=== PATIENT | male | born 1995 | race Caucasian/White ===

== ENCOUNTER 2022-03-27 22:29 | Emergency (ER) | payer MEDICAID ==
[2022-03-27 23:10] LABS: Absolute Neutrophil Ct (ANC) 4.32 x10^3/uL (1.4-6.9); Basophil (Absolute #) 0.04 x10^3/uL (0-0.4); Eosinophil % 7.2 % (0.00-5.0); Eosinophil (Absolute #) 0.61 x10^3/uL (0-0.5); Hematocrit 43.9 % (42-50); Hemoglobin 15.1 g/dL (12.5-18.0); Lymphocytes % 32.9 % (24.0-44.0); Mean Corpuscular Hemoglobin 30.3 pg (26-32); Mean Corpuscular Hgb Concent. 34.4 g/dL (32-36); Mean Platelet Volume 9.2 fL (7.5-11.0); Monocytes % 8.2 % (0.0-12.0); Neutrophil % 50.8 % (36.0-66.0); Platelet Count 256 x10^3/uL (150-450); Red Blood Count 4.99 x10^6/uL (4.1-5.6); Red Cell Distribution Width 11.9 % (11.5-14.0); White Blood Count 8.5 x10^3/uL (4.0-10.5)
--- NOTE | 2022-03-27 23:12 | ERPHSYRPT ---
- History of Present Illness Time Seen by Provider: 03/27/22 22:51 Source: patient Exam Limitations: no limitations Patient Subjective Stated Complaint: Patient is here for a well-check/work physical. States he was sent home from work twice this week due to elevated B/P and his job states he must have a physical form completed by a doctor to keep his job and return to work. Patient brought this form with him to the ED. Patient states he was sent home 2 days ago from work and has no current complaints or symptoms right now. States elevated B/P at work happens when he gets "headaches in my left front of my forehead that feels like a lot of pressure in there." Triage Nursing Assessment: Patient ambulated back to ED without difficulties. He is alert and oriented and anwering questions appropriately. No SOB. Skin tone normal. VINICIO MACKEY. Physician History: 26-year-old presented in the ER for evaluation of elevated blood pressure which has been found twice at work this week. Blood pressure was 160/100 earlier toda y and is sent home. Patient reports he works in an environment which is hot and starts feeling mild headache without chest pain palpitations shortness of breath. Denies any dizziness or lightheadedness. They checked his blood pressure it was elevated and sent in here. No history of previous elevated blood pressure. Denies having this kind of symptoms at home. Has not checked his blood pressure at home. Denies caffeinated/energy drinks are any supplement use. No drug alcohol or tobacco use. Does have family history of hypertension. Currently patient is asymptomatic and blood pressure is 144/83. Timing/Duration: day(s), intermittent, improved Severity: moderate Associated Symptoms: headaches, No nausea, No vomiting, No abdominal pain, No shortness of breath, No heartburn, No diaphoresis, No cough, No chest pain, No loss of appetite, No malaise, No syncope, No seizure, No weakness Allergies/Adverse Reactions: No Known Drug Allergies Allergy (Verified 03/27/22 22:34) Home Medications: No Reportable Medications [No Reported Medications] 03/27/22 [History] Hx Tetanus, Diphtheria Vaccination/Date Given: Yes Hx Influenza Vaccination/Date Given: Yes Hx Pneumococcal Vaccination/Date Given: No Immunizations Up to Date: Yes Travel Risk - International Travel Have you traveled outside of the country in past 3 weeks: No - Coronavirus Screening Are you exhibiting any of the following symptoms?: No Close contact with a COVID-19 positive Pt in past 14-21 Days: No - Vaccine Status Have you recieved a Covid-19 vaccination: Yes 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: [id number] - Vaccination Dates Date of 2cond Vaccination (if applicable): 2020 - Review of Systems Constitutional: No Symptoms Eyes: No Symptoms Ears, Nose, & Throat: No Symptoms Respiratory: No Symptoms Cardiac: No Symptoms Abdominal/Gastrointestinal: No Symptoms Genitourinary Symptoms: No Symptoms Musculoskeletal: No Symptoms Skin: No Symptoms Neurological: No Dizziness, No Focal Weakness, No Gait Changes Psychological: No Symptoms Endocrine: No Symptoms Hematologic/Lymphatic: No Symptoms Immunological/Allergic: No Symptoms - Past Medical History Pertinent Past Medical History: Yes Neurological History: Migraines ENT History: No Pertinent History Cardiac History: No Pertinent History Respiratory History: No Pertinent History Endocrine Medical History: No Pertinent History Musculoskeletal History: Fractures GI Medical History: No Pertinent History History: No Pertinent History Psycho-Social History: No Pertinent History Male Reproductive Disorders: No Pertinent History - Past Surgical History Past Surgical History: Yes Neuro Surgical History: No Pertinent History Cardiac: No Pertinent History Respiratory: No Pertinent History Gastrointestinal: No Pertinent History Genitourinary: No Pertinent History Musculoskeletal: No Pertinent History Male Surgical History: No Pertinent History Other Surgical History: 2 titanum plates in arm from a broken bone - Social History Smoking Status: Current every day smoker How long have you smoked: Teenager Exposure to second hand smoke: No Drug Use: none Patient Lives Alone: No - Nursing Vital Signs Nursing Vital Signs: Initial Vital Signs Temperature 97 F 03/27/22 22:36 Pulse Rate 65 03/27/22 22:36 Respiratory Rate 18 03/27/22 22:36 Blood Pressure 144/83 03/27/22 22:36 O2 Sat by Pulse Oximetry 99 03/27/22 22:36 Pain Scale Pain Intensity 0 - Physical Exam General Appearance: no apparent distress, alert Eye Exam: PERRL/EOMI, eyes nml inspection Ears, Nose, Throat Exam: normal ENT inspection, TMs normal, pharynx normal Neck Exam: normal inspection, non-tender, supple, full range of motion Respiratory Exam: normal breath sounds, lungs clear Cardiovascular Exam: regular rate/rhythm, normal heart sounds Gastrointestinal/Abdomen Exam: soft, normal bowel sounds, No tenderness Back Exam: normal inspection, normal range of motion Extremity Exam: normal inspection, normal range of motion Neurologic Exam: alert, oriented x 3, cooperative, 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, normal mood/affect, nml cerebellar function, nml station & gait, sensation nml, No motor deficits Skin Exam: normal color SpO2 Interpretation: normal SpO2: 99 O2 Delivery: Room Air - Course EKG Interpreted by Me: RATE (66), Sinus Rhythm, NORMAL AXIS, NORMAL INTERVALS, N ORMAL QRS Ordered Tests: Active Orders 24 hr Category Date Time Status EKG-ER Only STAT Care 03/27/22 22:53 Active CHEST 1 VIEW (PORTABLE) Stat Exams 03/27/22 22:53 Taken CBC W DIFF Stat Lab 03/27/22 23:08 Completed CMP Stat Lab 03/27/22 23:08 Completed TROPONIN Q3H Lab 03/27/22 23:08 Completed TROPONIN Q3H Lab 03/28/22 02:00 Ordered TROPONIN Q3H Lab 03/28/22 05:00 Ordered TROPONIN Q3H Lab 03/28/22 08:00 Ordered TROPONIN Q3H Lab 03/28/22 11:00 Ordered UA W/RFX CULTURE Stat Lab 03/27/22 23:11 Completed Lab/Rad Data: Laboratory Result Diagrams 03/27/22 23:08 03/27/22 23:08 Laboratory Results 03/27/22 03/27/22 03/27/22 Range/Units 23:11 23:08 23:08 WBC (4.0-10.5) x10^3/uL RBC (4.1-5.6) x10^6/uL Hgb (12.5-18.0) g/dL Hct (42-50) % MCV (78-100) fL MCH (26-32) pg MCHC (32-36) g/dL RDW (11.5-14.0) % Plt Count (150-450) x10^3/uL MPV (7.5-11.0) fL Gran % (36.0-66.0) % Immature Gran % (Auto) (0.00-0.4) % Nucleat RBC Rel Count (0.00-0.1) % Eos # (Auto) (0-0.5) x10^3/uL Immature Gran # (Auto) (0.00-0.03) x10^3u/L Absolute Lymphs (auto) (1.0-4.6) x10^3/uL Absolute Monos (auto) (0.0-1.3) x10^3/uL Absolute Nucleated RBC (0.00-0.01) x10^3u/L Lymphocytes % (24.0-44.0) % Monocytes % (0.0-12.0) % Eosinophils % (0.00-5.0) % Basophils % (0.0-0.4) % Absolute Granulocytes (1.4-6.9) x10^3/uL Basophils # (0-0.4) x10^3/uL Sodium 139 (137-145) mmol/L Potassium 3.7 (3.5-5.1) mmol/L Chloride 103 (98-107) mmol/L Carbon Dioxide 28 (22-30) mmol/L Anion Gap 12.2 (5-15) MEQ/L BUN 11 (9-20) mg/dL Creatinine 0.92 (0.66-1.25) mg/dL Estimated GFR > 60.0 ML/MIN Glucose 100 (74-106) mg/dL Calcium 9.3 (8.4-10.2) mg/dL Total Bilirubin 1.20 (0.2-1.3) mg/dL AST 25 (17-59) U/L ALT 21 (0-50) U/L Alkaline Phosphatase 63 (38-126) U/L Troponin I < 0.012 (0.000-0.034) ng/mL Serum Total Protein 7.2 (6.3-8.2) g/dL Albumin 4.2 (3.5-5.0) g/dL Urinalys Dipstick Clnc MAIN LAB Urine Color YELLOW (YELLOW) Urine Appearance CLEAR (CLEAR) Urine pH 7.0 (5-6) Ur Specific [place] 1.020 (1.005-1.025) POC Urine Protein Conf NEGATIVE (Negative) Urine Ketones NEGATIVE (NEGATIVE) Urine Nitrite NEGATIVE (NEGATIVE) Urine Bilirubin NEGATIVE (NEGATIVE) Urine Urobilinogen 0.2 (0-1) mg/dL Urine Leukocytes NEGATIVE (NEGATIVE) Urine WBC (Auto) 0-2 (0-5) /HPF Urine RBC (Auto) NONE (0-2) /HPF U Epithel Cells (Auto) NONE (FEW) /HPF Urine Bacteria (Auto) NONE (NEGATIVE) /HPF Urine RBC NEGATIVE (0-5) Terrell/ul Amorphous Crystals FEW (NEGATIVE) /HPF Ur Culture Indicated? NO Urine Glucose NEGATIVE (NEGATIVE) mg/dL 03/27/22 Range/Units 23:08 WBC 8.5 (4.0-10.5) x10^3/uL RBC 4.99 (4.1-5.6) x10^6/uL Hgb 15.1 (12.5-18.0) g/dL Hct 43.9 (42-50) % MCV 88.0 (78-100) fL MCH 30.3 (26-32) pg MCHC 34.4 (32-36) g/dL RDW 11.9 (11.5-14.0) % Plt Count 256 (150-450) x10^3/uL MPV 9.2 (7.5-11.0) fL Gran % 50.8 (36.0-66.0) % Immature Gran % (Auto) 0.4 (0.00-0.4) % Nucleat RBC Rel Count 0.0 (0.00-0.1) % Eos # (Auto) 0.61 H (0-0.5) x10^3/uL Immature Gran # (Auto) 0.03 (0.00-0.03) x10^3u/L Absolute Lymphs (auto) 2.80 (1.0-4.6) x10^3/uL Absolute Monos (auto) 0.70 (0.0-1.3) x10^3/uL Absolute Nucleated RBC 0.00 (0.00-0.01) x10^3u/L Lymphocytes % 32.9 (24.0-44.0) % Monocytes % 8.2 (0.0-12.0) % Eosinophils % 7.2 H (0.00-5.0) % Basophils % 0.5 (0.0-0.4) % Absolute Granulocytes 4.32 (1.4-6.9) x10^3/uL Basophils # 0.04 (0-0.4) x10^3/uL Sodium (137-145) mmol/L Potassium (3.5-5.1) mmol/L Chloride (98-107) mmol/L Carbon Dioxide (22-30) mmol/L Anion Gap (5-15) MEQ/L BUN (9-20) mg/dL Creatinine (0.66-1.25) mg/dL Estimated GFR ML/MIN Glucose (74-106) mg/dL Calcium (8.4-10.2) mg/dL Total Bilirubin (0.2-1.3) mg/dL AST (17-59) U/L ALT (0-50) U/L Alkaline Phosphatase (38-126) U/L Troponin I (0.000-0.034) ng/mL Serum Total Protein (6.3-8.2) g/dL Albumin (3.5-5.0) g/dL Urinalys Dipstick Clnc Urine Color (YELLOW) Urine Appearance (CLEAR) Urine pH (5-6) Ur Specific [place] (1.005-1.025) POC Urine Protein Conf (Negative) Urine Ketones (NEGATIVE) Urine Nitrite (NEGATIVE) Urine Bilirubin (NEGATIVE) Urine Urobilinogen (0-1) mg/dL Urine Leukocytes (NEGATIVE) Urine WBC (Auto) (0-5) /HPF Urine RBC (Auto) (0-2) /HPF U Epithel Cells (Auto) (FEW) /HPF Urine Bacteria (Auto) (NEGATIVE) /HPF Urine RBC (0-5) Terrell/ul Amorphous Crystals (NEGATIVE) /HPF Ur Culture Indicated? Urine Glucose (NEGATIVE) mg/dL - Progress Progress: unchanged, re-examined Progress Note: 03/27/22 23:51 26-year-old is evaluated for elevated blood pressure earlier at work. Patient pressure on presentation was in 140s and then improved to 130s without any tachypnea or tachycardia. EKG showed sinus rhythm without any ST elevation. Chest x-ray reviewed by me no acute findings, official report is pending. Grossly unremarkable chemistries, CBC and troponin. His elevated blood pressure at work could be related to stress/heat, I would not start him on any antihypertensive now, recommended 2 weeks monitoring of blood pressure/keeping a log and outpatient follow-up with primary care. He does not have any signs of endorgan damage, do not think needs any other work-up and is stable for discharge with outpatient primary care follow-up to see if he needs any work-up for secondary hypertension. Discussed signs symptoms of worsening needing return to ER which he seems understanding. Counseled pt/family regarding: lab results, diagnosis, need for follow-up, rad results - Departure Departure Disposition: Home Clinical Impression: Elevated blood pressure, situational Condition: Stable Critical Care Time: No Referrals: DOCTOR,NO FAMILY [Primary Care Provider] - Follow up/PCP as directed OLIVER BRAXTON DO [ACTIVE STAFF] - Follow up/PCP as directed (Call tomorrow for appointment for reevaluation) Instructions: High Blood Pressure (DC), Controlling Your Blood Pressure Through Lifestyle Additional Instructions: Monitor your blood pressure regularly, keep a log and follow-up with primary care for reevaluation. Take low-salt diet, regular exercise, weight loss. Return to ER for persistent elevated blood pressure more than 150 systolic/90 diastolic, chest pain/palpitations/headache/dizziness/blurry vision/abdominal pain etc.
[2022-03-27 23:20] LABS: Appearance CLEAR (CLEAR); Bilirubin NEGATIVE (NEGATIVE); Glucose NEGATIVE (NEGATIVE); Ketones NEGATIVE (NEGATIVE); RBC NEGATIVE Ery/ul (0-5)
[2022-03-27 23:21] LABS: Dipstick done @ ? MAIN LAB; Nitrite NEGATIVE (NEGATIVE); Protein,Urine Dip NEGATIVE (Negative); Urobilinogen 0.2 mg/dL (0-1)
[2022-03-27 23:23] LABS: Amourphous Crystal FEW /HPF (NEGATIVE); WBC 0-2 /HPF (0-5)
[2022-03-27 23:23] LABS: ALBUMIN 4.2 g/dL (3.5-5.0); ALKALINE PHOSPHATASE 63 U/L (38-126); ANION GAP 12.2 MEQ/L (5-15); BLOOD UREA NITROGEN 11 mg/dL (9-20); CHLORIDE 103 mmol/L (98-107); Calcium 9.3 mg/dL (8.4-10.2); Carbon Dioxide 28 mmol/L (22-30); Creatinine 1 0.92 mg/dL (0.66-1.25); EST GLOMERULAR FILTRATION RATE > 60.0 ML/MIN; Glucose 100 mg/dL (74-106); Potassium 3.7 mmol/L (3.5-5.1); SGOT/AST 25 U/L (17-59); SGPT/ALT 21 U/L (0-50); SODIUM 139 mmol/L (137-145); Total Protein 7.2 g/dL (6.3-8.2)
[2022-03-27 23:25] LABS: Urine Cultured Indicated? NO
[2022-03-27 23:35] VITALS: BP 136/86; PULSE 68
[2022-03-27 23:55] VITALS: O2SAT 99
--- NOTE | 2022-03-28 08:43 | XRAY ---
Indication: Hypertension. Comparison: None Portable apical lordotic chest demonstrates normal heart, lungs, and bony thorax.
== END 2022-03-27 23:59 | disposition home or self-care (01) ==
LOC: ED 22:29
DX: R03.0 Elevated blood-pressure reading, without diagnosis of hypertension (principal); R51.9 Headache, unspecified; Z72.0 Tobacco use
CPT/HCPCS: 36415; 71045; 80053; 81015; 84484; 85025; 93005; 99284

== ENCOUNTER 2023-08-17 08:09 | Emergency (ER) | payer MEDICAID, OTHER ==
--- NOTE | 2023-08-17 08:13 | ERPHSYRPT ---
- History of Present Illness Time Seen by Provider: 08/17/23 08:12 Source: patient Exam Limitations: no limitations Physician History: This is a 27-year-old white male patient who jumped off of a [employer] truck yesterday and rolled his left ankle. He presents with left ankle pain. Occurred: yesterday Quality: constant, aching Severity of Pain-Max: mild (Moderate) Severity of Pain-Current: mild (To moderate) Lower Extremities Pain: ankle: left Modifying Factors: Improves With: movement Associated Symptoms: other (Can weight-bear but it hurts to do so.) Allergies/Adverse Reactions: No Known Drug Allergies Allergy (Verified 08/17/23 08:17) Home Medications: No Reportable Medications [No Reported Medications] 03/27/22 [History] Hx Tetanus, Diphtheria Vaccination/Date Given: Yes Hx Influenza Vaccination/Date Given: Yes Hx Pneumococcal Vaccination/Date Given: No Travel Risk - International Travel Have you traveled outside of the country in past 3 weeks: No - Coronavirus Screening Are you exhibiting any of the following symptoms?: No Close contact with a COVID-19 positive Pt in past 14-21 Days: No - Vaccine Status Have you recieved a Covid-19 vaccination: Yes [employer]: [employer] - Vaccination Dates Date of 2cond Vaccination (if applicable): 2020 - Review of Systems Constitutional: No Symptoms Eyes: No Symptoms Ears, Nose, & Throat: No Symptoms Respiratory: No Symptoms Cardiac: No Symptoms Abdominal/Gastrointestinal: No Symptoms Genitourinary Symptoms: No Symptoms Musculoskeletal: Injury (Left ankle) Skin: No Symptoms Neurological: No Symptoms Psychological: No Symptoms Endocrine: No Symptoms Hematologic/Lymphatic: No Symptoms Immunological/Allergic: No Symptoms All Other Systems: Reviewed and Negative - Past Medical History Pertinent Past Medical History: Yes Neurological History: Migraines ENT History: No Pertinent History Cardiac History: No Pertinent History Respiratory History: No Pertinent History Endocrine Medical History: No Pertinent History Musculoskeletal History: Fractures GI Medical History: No Pertinent History History: No Pertinent History Psycho-Social History: No Pertinent History Male Reproductive Disorders: No Pertinent History - Past Surgical History Past Surgical History: Yes Neuro Surgical History: No Pertinent History Cardiac: No Pertinent History Respiratory: No Pertinent History Gastrointestinal: No Pertinent History Genitourinary: No Pertinent History Musculoskeletal: No Pertinent History Male Surgical History: No Pertinent History Other Surgical History: 2 titanum plates in arm from a broken bone - Social History Smoking Status: Current every day smoker How long have you smoked: Teenager Exposure to second hand smoke: No Drug Use: none Patient Lives Alone: No - Nursing Vital Signs Nursing Vital Signs: Initial Vital Signs Temperature 97.4 F 08/17/23 08:10 Pulse Rate 61 08/17/23 08:10 Respiratory Rate 17 08/17/23 08:10 Blood Pressure 128/79 08/17/23 08:10 O2 Sat by Pulse Oximetry 98 08/17/23 08:10 Pain Scale Pain Intensity 4 - Physical Exam General Appearance: no apparent distress, alert, anxiety Eyes, Ears, Nose, Throat Exam: normal ENT inspection, moist mucous membranes Neck Exam: normal inspection, non-tender, supple, full range of motion Cardiovascular/Respiratory Exam: chest non-tender, no respiratory distress Gastrointestinal/Abdominal Exam: non-tender Back Exam: normal inspection, normal range of motion, No CVA tenderness, No vertebral tenderness Hips Exam: bilateral: non-tender, normal inspection, normal range of motion, no evidence of injury Legs Exam: bilateral leg: non-tender, normal inspection, normal range of motion, no evidence of injury Knees Exam: bilateral knee: non-tender, normal inspection, normal range of motion, no evidence of injury Ankle Exam: right ankle: non-tender, left ankle: soft tissue tenderness, bilateral ankle: normal inspection, normal range of motion, no evidence of injury Foot Exam: bilateral foot: non-tender, normal inspection, normal range of motion, no evidence of injury Neuro/Tendon Exam: normal sensation, normal motor functions, normal tendon functions, responds to pain, no evidence tendon injury Mental Status Exam: alert, oriented x 3, cooperative Skin Exam: normal color, warm, dry SpO2 Interpretation: normal O2 Delivery: Room Air - Course Nursing assessment & vital signs reviewed: Yes Ordered Tests: Active Orders 24 hr Category Date Time Status ANKLE (3 VIEWS) Stat Exams 08/17/23 08:15 Completed - Progress Progress: unchanged Progress Note: 08/17/23 08:31 This patient's medical issue is 1 of low complexity. Level of complexity in the work-up performed is based on review of the patient's past medical history, review the patient's medication list, review of the patient's drug allergy list, history of present illness and physical findings on examination. Patient's work-up includes x-ray of the left ankle. No laboratory studies are necessary. 08/17/23 08:48 The x-ray of the left ankle was interpreted by the radiologist. I reviewed the impression. There is no evidence of any acute fracture or dislocation. There is a calcaneal bone island Counseled pt/family regarding: diagnosis, need for follow-up, rad results Medical Desision Making - Diagnostic Testing Diagnostic test were ordered, analyzed, and reviewed by me: Yes Radiological Interpretation: Interpreted by me, Teleradiologist Report - Risk of complications Minimal Risk: Minimal risk of morbidity - Departure Departure Disposition: Home Clinical Impression: Left ankle sprain Condition: Stable Critical Care Time: No Additional Instructions: Ice pack to tender area 3 times a day for the next 48 hours. Use Tylenol and ibuprofen for pain control. Keep your left lower extremity elevated above the level of the heart when not ambulating. Weightbearing as tolerated. Follow-up at the [facility] orthopedic clinic Monday through Monday 8 AM to 10 AM for further evaluation and management if your symptoms worsen or are persistent beyond 72 hours. You do not need an appointment. It is a walk-in clinic.
[2023-08-17 08:26] VITALS: TEMP 97.4
--- NOTE | 2023-08-17 08:42 | XRAY ---
Indication: Pain following injury. Comparison: None 3 view left ankle demonstrates 4 mm calcaneal bone island. No other bony, articular, or soft tissue abnormalities.
[2023-08-17 08:52] VITALS: PULSE 76; RESP 18; O2SAT 97
[2023-08-17 09:04] VITALS: BP 139/69
== END 2023-08-17 09:03 | disposition home or self-care (01) ==
LOC: ED 08:09
DX: S93.402A Sprain of unspecified ligament of left ankle, initial encounter (principal); X50.0XXA Overexertion from strenuous movement or load, initial encounter; Z72.0 Tobacco use
CPT/HCPCS: 73610; 99283

== ENCOUNTER 2024-03-20 15:15 | Emergency (ER) | payer OTHER ==
[2024-03-20 15:30] VITALS: BP 131/71; PULSE 70; RESP 18; TEMP 97; O2SAT 98
--- NOTE | 2024-03-20 16:00 | ERPHSYRPT ---
- History of Present Illness Time Seen by Provider: 03/20/24 15:45 Source: patient Exam Limitations: no limitations Patient Subjective Stated Complaint: pt here for dizziness at times, with a headache, he is worried that hes rgiht ear is the problem Triage Nursing Assessment: pt alert, walked in,resp easy, skin w/d/p. moves all ext well. denies any drainage from right ear but states he cant hear well out of it Timing/Duration: today Severity: mild Modifying Factors: Improves With: cold therapy Associated Symptoms: denies symptoms Allergies/Adverse Reactions: No Known Drug Allergies Allergy (Verified 03/20/24 15:22) Hx Tetanus, Diphtheria Vaccination/Date Given: No Hx Influenza Vaccination/Date Given: No Hx Pneumococcal Vaccination/Date Given: No Immunizations Up to Date: Yes Travel Risk - International Travel Have you traveled outside of the country in past 3 weeks: No - Emerging Infectious Disease Are you exhibiting symptoms associated with any current EIDs: No - Review of Systems Eyes: No Symptoms Ears, Nose, & Throat: No Symptoms Respiratory: No Symptoms Cardiac: No Symptoms Abdominal/Gastrointestinal: No Symptoms Genitourinary Symptoms: No Symptoms Musculoskeletal: No Symptoms - Past Medical History Pertinent Past Medical History: No Neurological History: Migraines ENT History: No Pertinent History Cardiac History: No Pertinent History Respiratory History: No Pertinent History Endocrine Medical History: No Pertinent History Musculoskeletal History: Fractures GI Medical History: No Pertinent History History: No Pertinent History Psycho-Social History: No Pertinent History Male Reproductive Disorders: No Pertinent History - Past Surgical History Past Surgical History: Yes Neuro Surgical History: No Pertinent History Cardiac: No Pertinent History Respiratory: No Pertinent History Gastrointestinal: No Pertinent History Genitourinary: No Pertinent History Musculoskeletal: Orthopedic Surgery Male Surgical History: No Pertinent History Other Surgical History: 2 titanum plates in arm from a broken bone - Social History Smoking Status: Never smoker How long have you smoked: Teenager Exposure to second hand smoke: No Drug Use: none Patient Lives Alone: No - Social Determinants of Health Will the patient participate in the screening: Declined to provide - Nursing Vital Signs Nursing Vital Signs: Initial Vital Signs Temperature 97.0 F 03/20/24 15:29 Pulse Rate 70 03/20/24 15:29 Respiratory Rate 18 03/20/24 15:29 Blood Pressure 131/71 03/20/24 15:29 O2 Sat by Pulse Oximetry 98 03/20/24 15:29 Pain Scale Pain Intensity 1 - Physical Exam General Appearance: no apparent distress Eye Exam: PERRL/EOMI Ears, Nose, Throat Exam: TM abnormal (R), other (right TM is erythematous with poor cone of light) Neck Exam: normal inspection Respiratory Exam: normal breath sounds Cardiovascular Exam: regular rate/rhythm Gastrointestinal/Abdomen Exam: soft SpO2: 98 Ordered Tests: Active Orders 24 hr Category Date Time Status HEAD WITHOUT CONTRAST [CT] Stat Exams 03/20/24 15:58 Completed - Progress Progress Note: Head CT revealed paranasal sinus disease will be discharged home with a course of Augmentin for treatment of his sinusitis and right otitis media he was informed of the need to follow-up with his primary care provider and return to the ER if he were to get worse 03/20/24 17:14 Medical Desision Making - Discussion of managment Agreed on:: need for follow-up - Departure Clinical Impression: Otitis media, Dizziness Condition: Stable Critical Care Time: No Referrals: DOCTOR,NO FAMILY [Primary Care Provider] - Follow up/PCP as directed Prescriptions: Amoxicillin/Potassium Clav [Amox Tr-K Clv 875-125 mg Tab] 1 each PO BID 8 Days #16 tablet
--- NOTE | 2024-03-20 16:33 | XRAY ---
Indication: Headache and dizziness. Multiple contiguous axial images obtained through the head without contrast. Comparison: None Normal appearing brain parenchyma, ventricles, and bony calvarium. Moderate mucosal thickening right maxillary and lesser degree both ethmoid sinuses with tiny fluid leveling. Mastoid air cells are clear. Impression: Paranasal sinuses disease. Remaining CT head without contrast exam is normal.
== END 2024-03-20 17:28 | disposition home or self-care (01) ==
LOC: ED 15:15
DX: H66.91 Otitis media, unspecified, right ear (principal); R42 Dizziness and giddiness
CPT/HCPCS: 70450; 99282